=== PATIENT | male | born 1940 | race Caucasian/White ===

== ENCOUNTER 2022-02-23 10:12 | Emergency (ER) | payer MEDICARE, BC ==
[~2022-02-23] VITALS: Ht 180.3 cm; Wt 81.8 kg
[2022-02-23] MEDS ORDERED: CARVEDILOL25 MG PO (10:34)
[2022-02-23] MEDS ORDERED: LOSARTAN POTASS50 M1 PO (10:34)
[2022-02-23] MEDS ORDERED: GOOD SENSE ASPI81 M1 PO (10:34)
[2022-02-23] MEDS ORDERED: NITROGLYCERIN0.4 M1 SL (10:35)
[2022-02-23] MEDS ORDERED: TORSEMIDE20 M1 PO (10:35)
[2022-02-23] MEDS ORDERED: MORGIDOX 1X100100 MG PO (11:16)
[2022-02-23 11:34] VITALS: BP 140/70
== END 2022-02-23 11:30 | disposition home or self-care (01) ==
LOC: ED 10:12
DX: L02.212 Cutaneous abscess of back [any part, except buttock and flank] (principal); Z87.891 Personal history of nicotine dependence; Z28.310 Unvaccinated for COVID-19